=== PATIENT | female | born 1940 | race Caucasian/White ===

== ENCOUNTER → 2018-05-24 | Outpatient (CLI) | payer MEDICARE ==
[~2018-05-24] MED LIST: AMLO5 PO; ASCO500 PO; ASPI81CH PO; BISA5EC PO; CHOL10002 PO; CLON.1 PO; Cranberry300 MG PO; DOCU100 PO; FLUT.05NI; FURO40 PO; HYDCHL25 PO; Klor-Con 1010 MEQ PO; LISI20 PO; LORA10 PO; LOSA50 PO; LOVA20 PO; Lovastatin10 MG PO; METCAR750 PO; METF500 PO; METF500C PO; METO25 PO; METO50 PO; NITR100 PO; OMEP10ER PO; OMEP20ER PO; OXYACE5T PO; SUCR1 PO; TRAM50 PO; VITAMIN C500 MG PO
== END | disposition home or self-care (01) ==
LOC: LAB SHORT 11:03 → LAB EV 11:03
DX: N39.0 Urinary tract infection, site not specified (principal)
CPT/HCPCS: 87077; 87086; 87186

== ENCOUNTER → 2019-05-25 | Outpatient (CLI) | payer MEDICARE, OTHER | END | disposition home or self-care (01) | LOC: LAB SHORT 13:04 → LAB 13:04 | DX: R30.0 Dysuria (principal) | CPT/HCPCS: 87077; 87086; 87186 ==

== ENCOUNTER 2019-06-23 07:30 | Emergency (ER) | payer MEDICARE, OTHER ==
[~2019-06-23] VITALS: Ht 157.5 cm; Wt 90.7 kg
== END 2019-06-23 09:35 | disposition home or self-care (01) ==
LOC: ER 07:30
DX: S91.201A Unspecified open wound of right great toe with damage to nail, initial encounter (principal); E11.9 Type 2 diabetes mellitus without complications; I10 Essential (primary) hypertension; Z87.891 Personal history of nicotine dependence; Z88.8 Allergy status to other drugs, medicaments and biological substances; Z88.5 Allergy status to narcotic agent; Z88.1 Allergy status to other antibiotic agents; Z79.899 Other long term (current) drug therapy; Z79.84 Long term (current) use of oral hypoglycemic drugs; Z79.82 Long term (current) use of aspirin; W23.1XXA Caught, crushed, jammed, or pinched between stationary objects, initial encounter
CPT/HCPCS: 11730; 90471; 90714; 99282-25

== ENCOUNTER → 2019-07-29 | Outpatient (CLI) | payer MEDICARE, OTHER | END | disposition home or self-care (01) | LOC: LAB EV 16:05 → LAB SHORT 16:05 | DX: N39.0 Urinary tract infection, site not specified (principal) | CPT/HCPCS: 87086 ==

== ENCOUNTER 2020-08-15 06:20 | Day surgery (SDC) | payer MEDICARE, OTHER ==
[~2020-08-15] VITALS: Ht 157.5 cm; Wt 93.1 kg
[~2020-08-15 06:20] MED LIST changes: +Aspir 8181 MG PO
== END 2020-08-15 09:38 | disposition home or self-care (01) ==
LOC: ORSCSDS 06:20
PROVIDERS: Surgery
PROC: 0WUF0JZ Supplement Abdominal Wall with Synthetic Substitute, Open Approach (ICD-10-PCS; principal; 2020-08-15 07:30)
DX: K42.0 Umbilical hernia with obstruction, without gangrene (principal); G47.33 Obstructive sleep apnea (adult) (pediatric); Z87.891 Personal history of nicotine dependence; E78.5 Hyperlipidemia, unspecified; I10 Essential (primary) hypertension; E11.9 Type 2 diabetes mellitus without complications; Z85.528 Personal history of other malignant neoplasm of kidney; Z79.899 Other long term (current) drug therapy; Z79.82 Long term (current) use of aspirin; Z79.84 Long term (current) use of oral hypoglycemic drugs
CPT/HCPCS: 82947; C1781; J0690; J1100; J1885; J2250; J2405; J2704; J3010; J7120

== ENCOUNTER → 2021-04-15 | Outpatient (CLI) | payer MEDICARE, OTHER ==
[2021-04-17 13:10] LABS: M-SPIKE, % Not Observed % (Not Observed); PROTEIN,TOTAL,URINE 5.5 mg/dL (Not Estab.)
[2021-04-18 12:10] LABS: METANEPHRINE, UR 75 ug/L (Undefined)
[2021-04-20 17:08] LABS: DOPAMINE, URINE 70 ug/L (Undefined)
== END ==
LOC: LAB SHORT 07:31 → LAB 07:31
PROVIDERS: Internal Medicine; Internal Medicine Endocrinology, Diabetes & Metabolism
DX: D35.00 Benign neoplasm of unspecified adrenal gland (principal); E83.52 Hypercalcemia
CPT/HCPCS: 81050; 82384; 82530; 83835; 84156; 84166

== ENCOUNTER 2021-07-14 07:12 | Day surgery (SDC) | payer MEDICARE ==
[~2021-07-14] VITALS: Ht 159 cm; Wt 91.4 kg
--- NOTE | 2021-07-14 08:06 | NUR ---
History, Chart, Medications and Allergies reviewed before start of procedure.Ambulatory in Day Surgery Patient confirms NPO status and agrees with scheduled surgery.
--- NOTE | 2021-07-14 09:04 | NUR ---
07/14/21 0904 BAR MARIA History, Chart, Medications and Allergies reviewed before start of procedure. 3-LEAD EKG REVIEWED WITH PHYSICIAN PRIOR TO START OF PROCEDURE. O2 VIA N/C INTACT THROUGHOUT SEDATION/PROCEDURE. MONITOR INTACT WITH CONTINUOUS PULSE OXIMETRY AND INTERMITTENT BP. MAC WITH DR. NGUYEN.
--- NOTE | 2021-07-14 10:07 | NUR ---
Discharge instructions reviewed with patient. Patient verbalizes understanding. Copy given to patient to take home. PT BELCHING, DENIES PAIN. TOLERATED WATER AND JUICE WELL. Discharged via wheelchair to private car for ride home.
== END 2021-07-14 10:10 | disposition home or self-care (01) ==
LOC: ORSCMMR 07:12 → ORD 09:00 → ORSCMMR 09:00
PROVIDERS: Student in an Organized Health Care Education/Training Program
PROC: 0DB78ZX Excision of Stomach, Pylorus, Via Natural or Artificial Opening Endoscopic, Diagnostic (ICD-10-PCS; principal; 2021-07-14 09:00)
PROC: 0DB98ZX Excision of Duodenum, Via Natural or Artificial Opening Endoscopic, Diagnostic (ICD-10-PCS; principal; 2021-07-14 09:00)
DX: K21.9 Gastro-esophageal reflux disease without esophagitis (principal); R10.13 Epigastric pain; R14.0 Abdominal distension (gaseous); K29.80 Duodenitis without bleeding; I10 Essential (primary) hypertension; I25.10 Atherosclerotic heart disease of native coronary artery without angina pectoris; G47.33 Obstructive sleep apnea (adult) (pediatric); Z87.891 Personal history of nicotine dependence; E11.9 Type 2 diabetes mellitus without complications; E66.01 Morbid (severe) obesity due to excess calories; Z68.36 Body mass index [BMI] 36.0-36.9, adult; Z79.84 Long term (current) use of oral hypoglycemic drugs; Z79.899 Other long term (current) drug therapy
CPT/HCPCS: 82947; 88305; 88342; J2405; J2704; J7120

== ENCOUNTER → 2021-08-20 | Outpatient (CLI) | payer MEDICARE | END | disposition home or self-care (01) | LOC: LAB SHORT 17:43 | DX: R82.79 Other abnormal findings on microbiological examination of urine (principal) | CPT/HCPCS: 87077; 87086; 87186 ==

== ENCOUNTER → 2021-12-01 | Outpatient (CLI) | payer MEDICARE | END | disposition home or self-care (01) | LOC: LAB SHORT 15:28 → LAB 15:28 | DX: N39.0 Urinary tract infection, site not specified (principal) | CPT/HCPCS: 87086; 87147 ==

== ENCOUNTER → 2022-01-08 | Outpatient (CLI) | payer MEDICARE | LOC: LAB SHORT 09:00 → LAB 09:00 | PROVIDERS: Internal Medicine Endocrinology, Diabetes & Metabolism | DX: D35.00 Benign neoplasm of unspecified adrenal gland (principal) | CPT/HCPCS: 81050 ==

== ENCOUNTER → 2022-04-08 | Outpatient (CLI) | payer MEDICARE, OTHER ==
[2022-04-08 14:52] LABS: Creatinine Urine 45.3 mg/dL (27.00-270.00)
[2022-04-08 15:43] LABS: Calcium, Urine 10.6 mg/dL (< 17.5)
== END ==
LOC: LAB SHORT 07:00 → LAB 07:00
PROVIDERS: Internal Medicine Endocrinology, Diabetes & Metabolism
DX: E83.52 Hypercalcemia (principal)
CPT/HCPCS: 81050; 82340; 82570

== ENCOUNTER 2022-12-14 08:53 | Day surgery (SDC) | payer MEDICARE ==
[~2022-12-14] VITALS: Ht 157.5 cm; Wt 88.6 kg
[2022-12-14 11:16] VITALS: BP 121/71
== END 2022-12-14 11:15 | disposition home or self-care (01) ==
LOC: ORSCSDS 08:53
PROVIDERS: Student in an Organized Health Care Education/Training Program
PROC: 0DB78ZX Excision of Stomach, Pylorus, Via Natural or Artificial Opening Endoscopic, Diagnostic (ICD-10-PCS; principal; 2022-12-14 10:30)
DX: K31.A29 Gastric intestinal metaplasia with dysplasia, unspecified (principal); K29.70 Gastritis, unspecified, without bleeding; I10 Essential (primary) hypertension; I25.10 Atherosclerotic heart disease of native coronary artery without angina pectoris; G47.33 Obstructive sleep apnea (adult) (pediatric); Z87.891 Personal history of nicotine dependence; E11.9 Type 2 diabetes mellitus without complications; K76.0 Fatty (change of) liver, not elsewhere classified; E66.9 Obesity, unspecified; Z68.35 Body mass index [BMI] 35.0-35.9, adult; Z79.84 Long term (current) use of oral hypoglycemic drugs; Z79.899 Other long term (current) drug therapy; Z79.82 Long term (current) use of aspirin
CPT/HCPCS: 82947; 88305; 88341; 88342; J2704; J7120

== ENCOUNTER → 2023-04-29 | Outpatient (CLI) | payer MEDICARE, OTHER | LOC: LAB SHORT 08:51 → LAB 08:51 | DX: N39.0 Urinary tract infection, site not specified (principal) | CPT/HCPCS: 87077; 87086; 87186 ==

== ENCOUNTER 2023-05-22 10:48 | Emergency (ER) | payer MEDICARE ==
[~2023-05-22] VITALS: Ht 157.5 cm; Wt 86.2 kg
[2023-05-22 11:01] VITALS: BP 179/86
[2023-05-22 11:24] LABS: Source, Urine Clean Catch
[2023-05-22 11:28] LABS: BASOPHILS ABSOLUTE AUTO 0.05 K/mm3 (0.00-0.23); BASOPHILS PERCENT AUTO 1 % (0-2); EOSINOPHILS ABSOLUTE AUTO 0.21 K/mm3 (0.00-0.68); EOSINOPHILS PERCENT AUTO 3 % (0-6); Hemoglobin 12.6 g/dL (11.5-16.0); IMMATURE GRAN ABSOLUTE AUTO 0.01 K/mm3 (0.00-0.10); IMMATURE GRAN PERCENT AUTO 0 % (0-1); LYMPHOCYTES ABSOLUTE AUTO 1.16 K/mm3 (0.84-5.20); LYMPHOCYTES PERCENT AUTO 17 % (21-46); MONOCYTES ABSOLUTE AUTO 0.59 K/mm3 (0.16-1.47); MONOCYTES PERCENT AUTO 9 % (4-13); Mean Corpuscular HGB 31.3 pg (26.0-34.0); Mean Corpuscular HGB Conc 34.1 g/dL (31.5-36.5); Mean Corpuscular Volume 92 fL (80-100); Mean Platelet Volume 10.1 fL (9.1-12.4); NEUTROPHILS ABSOLUTE AUTO 4.91 K/mm3 (1.96-9.15); NEUTROPHILS PERCENT AUTO 71 % (41-73); Platelet Count 291 K/mm3 (150-400); RDW Coefficient Variation 14.6 % (11.7-14.2); RDW Standard Deviation 49.1 fL (35.1-46.3); Red Blood Cell Count 4.02 M/mm3 (3.80-5.20); White Blood Cell Count 6.93 K/mm3 (4.00-11.30)
[2023-05-22 11:42] LABS: Appearance, Urine Cloudy (Clear); Bilirubin, Urine Neg (Neg); Blood, Urine 4+ (Neg); Color, Urine Yellow (P-Yellow); Glucose Qualitative, Urine Neg (Neg); Ketones, Urine Neg (Neg); Leukocyte Esterase, Urine 3+ (Neg); Nitrite, Urine Neg (Neg); Protein, Urine 2+ (Neg); Urobilinogen, Urine NORM (Normal)
[2023-05-22 11:43] LABS: Albumin, Blood 3.7 g/dL (3.4-5.0); Albumin/Globulin Ratio 1.2 (0.8-1.8); Bilirubin, Total 0.3 mg/dL (0.1-1.0); Bun/Creatinine Ratio 18.1 (12.0-20.0); Creatinine, Blood 0.77 mg/dL (0.40-1.00); Globulin, Blood 3.2 g/dL (2.2-4.0); Potassium, Blood 4.2 mmol/L (3.5-5.5); Total Protein, Blood 6.9 g/dL (6.4-8.2)
[2023-05-22 11:56] LABS: White Blood Cells, Urine TNTC /hpf (0-5)
[2023-05-22 11:57] LABS: Bacteria Few /hpf; Squamous Epithelial Cells Rare /hpf (Few)
[2023-05-22] MEDS ORDERED: CEFP200 PO (12:16)
== END 2023-05-22 12:25 | disposition home or self-care (01) ==
LOC: ER 10:48
PROVIDERS: Student in an Organized Health Care Education/Training Program
DX: N39.0 Urinary tract infection, site not specified (principal); Z87.891 Personal history of nicotine dependence; E11.9 Type 2 diabetes mellitus without complications; I10 Essential (primary) hypertension; Z88.0 Allergy status to penicillin; Z88.5 Allergy status to narcotic agent; Z88.8 Allergy status to other drugs, medicaments and biological substances; Z79.84 Long term (current) use of oral hypoglycemic drugs; Z79.82 Long term (current) use of aspirin; Z79.899 Other long term (current) drug therapy
CPT/HCPCS: 80053; 81001; 85025; 87077; 87086; 87186; 99283

== ENCOUNTER → 2023-07-21 | Outpatient (CLI) | payer MEDICARE ==
[~2023-07-21] MED LIST changes: +CEFP200 PO
== END | disposition home or self-care (01) ==
LOC: LAB 17:32 → LAB SHORT 17:32
DX: N30.00 Acute cystitis without hematuria (principal)
CPT/HCPCS: 87077; 87086; 87186

== ENCOUNTER 2023-12-11 08:18 | Emergency (ER) | payer MEDICARE, OTHER ==
[~2023-12-11] VITALS: Ht 157.5 cm; Wt 81.7 kg
[~2023-12-11 08:18] MED LIST changes: +Flonase 0.05% N16 GM; +SERT25 PO; +Tessalon Perle100 MG PO
[2023-12-11] MEDS ORDERED: Ibuprofen 400 MG Tab PO ONE (08:50)
[2023-12-11 09:29] VITALS: BP 155/89
== END 2023-12-11 09:59 | disposition home or self-care (01) ==
LOC: ER 08:18
DX: M25.552 Pain in left hip (principal); G89.29 Other chronic pain; Z88.8 Allergy status to other drugs, medicaments and biological substances; Z88.0 Allergy status to penicillin; Z88.5 Allergy status to narcotic agent; Z88.1 Allergy status to other antibiotic agents; Z79.899 Other long term (current) drug therapy; Z79.84 Long term (current) use of oral hypoglycemic drugs; Z79.82 Long term (current) use of aspirin; E11.9 Type 2 diabetes mellitus without complications; I10 Essential (primary) hypertension; Z87.891 Personal history of nicotine dependence
CPT/HCPCS: 99283; A9270

== ENCOUNTER → 2024-03-06 | Outpatient (CLI) | payer MEDICARE | END | disposition home or self-care (01) | LOC: LAB SHORT 08:53 → LAB 08:53 | DX: N39.0 Urinary tract infection, site not specified (principal) | CPT/HCPCS: 87077; 87086; 87186 ==

== ENCOUNTER 2024-04-08 03:43 | Emergency (ER) | payer MEDICARE ==
[~2024-04-08] VITALS: Ht 157.5 cm; Wt 81.7 kg
[2024-04-08 03:52] VITALS: BP 167/90
[2024-04-08 04:14] LABS: Source, Urine Clean Catch
[2024-04-08 04:18] LABS: Appearance, Urine Hazy (Clear); Bilirubin, Urine Neg (Neg); Blood, Urine 5+ (Neg); Color, Urine Yellow (P-Yellow); Glucose Qualitative, Urine Neg (Neg); Ketones, Urine Neg (Neg); Leukocyte Esterase, Urine 3+ (Neg); Nitrite, Urine Neg (Neg); Protein, Urine 3+ (Neg); Urobilinogen, Urine NORM (Normal)
[2024-04-08 04:25] LABS: Bacteria Many /hpf; Squamous Epithelial Cells Not Seen /hpf (Few); White Blood Cells, Urine TNTC /hpf (0-5)
[2024-04-08 04:47] LABS: BASOPHILS ABSOLUTE AUTO 0.05 K/mm3 (0.00-0.23); BASOPHILS PERCENT AUTO 1 % (0-2); EOSINOPHILS ABSOLUTE AUTO 0.22 K/mm3 (0.00-0.68); EOSINOPHILS PERCENT AUTO 3 % (0-6); Hematocrit 37.3 % (33.0-51.0); Hemoglobin 12.4 g/dL (11.5-16.0); IMMATURE GRAN ABSOLUTE AUTO 0.04 K/mm3 (0.00-0.10); IMMATURE GRAN PERCENT AUTO 1 % (0-1); LYMPHOCYTES ABSOLUTE AUTO 1.37 K/mm3 (0.84-5.20); LYMPHOCYTES PERCENT AUTO 17 % (21-46); MONOCYTES ABSOLUTE AUTO 0.65 K/mm3 (0.16-1.47); MONOCYTES PERCENT AUTO 8 % (4-13); Mean Corpuscular HGB 29.7 pg (26.0-34.0); Mean Corpuscular HGB Conc 33.2 g/dL (31.5-36.5); Mean Corpuscular Volume 89 fL (80-100); Mean Platelet Volume 9.3 fL (9.1-12.4); NEUTROPHILS ABSOLUTE AUTO 5.56 K/mm3 (1.96-9.15); NEUTROPHILS PERCENT AUTO 71 % (41-73); Platelet Count 263 K/mm3 (150-400); RDW Coefficient Variation 14.9 % (11.7-14.2); RDW Standard Deviation 49.1 fL (35.1-46.3); Red Blood Cell Count 4.18 M/mm3 (3.80-5.20); White Blood Cell Count 7.89 K/mm3 (4.00-11.30)
[2024-04-08 05:01] LABS: Albumin, Blood 3.6 g/dL (3.4-5.0); Albumin/Globulin Ratio 1.1 (0.8-1.8); Bilirubin, Total 0.3 mg/dL (0.1-1.0); Bun/Creatinine Ratio 21.3 (12.0-20.0); Calcium, Blood 10.1 mg/dL (8.5-10.1); Creatinine, Blood 0.75 mg/dL (0.40-1.00); Globulin, Blood 3.2 g/dL (2.2-4.0); Total Protein, Blood 6.8 g/dL (6.4-8.2)
[2024-04-08] MEDS ORDERED: CefTRIAXone Sodium 1,000 MG in NS 50 ML IV ONE (05:45)
[2024-04-08] MEDS ORDERED: CEFD300 PO (05:50)
== END 2024-04-08 06:04 | disposition home or self-care (01) ==
LOC: ER 03:43
PROVIDERS: Student in an Organized Health Care Education/Training Program
DX: N39.0 Urinary tract infection, site not specified (principal); E11.9 Type 2 diabetes mellitus without complications; I10 Essential (primary) hypertension; Z79.51 Long term (current) use of inhaled steroids; Z79.82 Long term (current) use of aspirin; Z79.899 Other long term (current) drug therapy; Z79.84 Long term (current) use of oral hypoglycemic drugs; Z88.0 Allergy status to penicillin; Z88.1 Allergy status to other antibiotic agents; Z88.5 Allergy status to narcotic agent; Z88.8 Allergy status to other drugs, medicaments and biological substances
CPT/HCPCS: 80053; 81001; 85025; J0696

== ENCOUNTER → 2024-10-23 | Outpatient (CLI) | payer MEDICARE ==
[~2024-10-23] MED LIST changes: +CEFD300 PO
[2024-10-23 14:05] LABS: Source, Urine Clean Catch
[2024-10-23 14:47] LABS: Appearance, Urine Hazy (Clear); Bilirubin, Urine Neg (Neg); Blood, Urine Neg (Neg); Color, Urine Yellow (P-Yellow); Glucose Qualitative, Urine Neg (Neg); Ketones, Urine Neg (Neg); Leukocyte Esterase, Urine 3+ (Neg); Nitrite, Urine Pos (Neg); Protein, Urine Neg (Neg); Specific Gravity, Urine 1.015 (1.003-1.022); Urobilinogen, Urine NORM (Normal)
[2024-10-23 15:05] LABS: Red Blood Cells, Urine 0-2 /hpf (0-2); Squamous Epithelial Cells Few /hpf (Few)
[2024-10-23 15:06] LABS: Bacteria Many /hpf
== END ==
LOC: LAB 14:01 → LAB SHORT 14:01
PROVIDERS: Internal Medicine
DX: N39.0 Urinary tract infection, site not specified (principal)
CPT/HCPCS: 81001; 87077; 87086; 87186

== ENCOUNTER 2024-11-28 14:14 | Observation (INO) | payer MEDICARE ==
[~2024-11-28] VITALS: Ht 157.5 cm; Wt 81.7 kg
[2024-11-28 14:56] LABS: BASOPHILS ABSOLUTE AUTO 0.04 K/mm3 (0.00-0.23); BASOPHILS PERCENT AUTO 1 % (0-2); EOSINOPHILS ABSOLUTE AUTO 0.16 K/mm3 (0.00-0.68); EOSINOPHILS PERCENT AUTO 3 % (0-6); Hematocrit 35.6 % (33.0-51.0); Hemoglobin 12.9 g/dL (11.5-16.0); IMMATURE GRAN ABSOLUTE AUTO 0.02 K/mm3 (0.00-0.10); IMMATURE GRAN PERCENT AUTO 0 % (0-1); LYMPHOCYTES ABSOLUTE AUTO 1.19 K/mm3 (0.84-5.20); LYMPHOCYTES PERCENT AUTO 21 % (21-46); MONOCYTES ABSOLUTE AUTO 0.45 K/mm3 (0.16-1.47); MONOCYTES PERCENT AUTO 8 % (4-13); Mean Corpuscular HGB 32.7 pg (26.0-34.0); Mean Corpuscular HGB Conc 36.2 g/dL (31.5-36.5); Mean Corpuscular Volume 90 fL (80-100); Mean Platelet Volume 9.9 fL (9.1-12.4); NEUTROPHILS ABSOLUTE AUTO 3.77 K/mm3 (1.96-9.15); NEUTROPHILS PERCENT AUTO 67 % (41-73); Platelet Count 327 K/mm3 (150-400); RDW Coefficient Variation 14.5 % (11.7-14.2); RDW Standard Deviation 46.9 fL (35.1-46.3); Red Blood Cell Count 3.94 M/mm3 (3.80-5.20); White Blood Cell Count 5.63 K/mm3 (4.00-11.30)
[2024-11-28 15:23] LABS: Albumin, Blood 3.7 g/dL (3.4-5.0); Albumin/Globulin Ratio 1.1 (0.8-1.8); Bilirubin, Total 0.2 mg/dL (0.1-1.0); Bun/Creatinine Ratio 22.6 (12.0-20.0); Calcium, Blood 9.9 mg/dL (8.5-10.1); Creatinine, Blood 0.8 mg/dL (0.40-1.00); Globulin, Blood 3.3 g/dL (2.2-4.0); Potassium, Blood 4.2 mmol/L (3.5-5.5)
[2024-11-28] MEDS ORDERED: Ondansetron HCl 2 MG / ML 2ML Vial IV PRN (18:35)
[2024-11-28] MEDS ORDERED: GABA100 PO ×2 (20:05)
[2024-11-28] MEDS ORDERED: SERT50 PO (20:06)
[2024-11-28] MEDS ORDERED: Bentyl10 MG PO (20:07)
[2024-11-28] MEDS ORDERED: Metoprolol Tartrate 50 MG Tab PO SCH (21:00)
[2024-11-28 21:25] VITALS: BP 151/94
[2024-11-28] MEDS ORDERED: Acetaminophen 500 MG Tab PO PRN (22:20)
[2024-11-29 00:40] VITALS: BP 156/76
[2024-11-29 03:32] VITALS: BP 162/85
[2024-11-29] MEDS ORDERED: Omeprazole 20 MG CapCR PO SCH (06:00)
[2024-11-29 07:14] VITALS: BP 152/70
[2024-11-29] MEDS ORDERED: Insulin Human Lispro 100 Units/ML 3ML Syringe SC SCH (07:30)
[2024-11-29] MEDS ORDERED: Enoxaparin 40 MG/0.4 ML SYR SC SCH (09:00)
[2024-11-29] MEDS ORDERED: Losartan Potassium 50 MG Tab PO SCH (09:00)
[2024-11-29] MEDS ORDERED: Aspirin 81 MG Chew PO SCH (09:00)
[2024-11-29] MEDS ORDERED: Atorvastatin 10 MG Tab PO SCH (09:00)
[2024-11-29 11:29] VITALS: BP 146/82
[2024-11-29 16:33] VITALS: BP 149/75
--- NOTE | 2024-11-29 17:54 | NUR ---
SHIFT SUMMARY MS SLATER HAS DENIED ANY CHEST PAIN OR SHORTNESS OF BREATH THIS SHIFT. ON TELE SR 1ST DEGREE AVB, NO CALLS FROM MEASUREMENT SUPERINTENDENT. FIRST PART OF STRESS TEST DONE, PLAN FOR SECOND PART TOMORROW AROUND 1030AM. UP WITH STAND-BY ASSISTANCE IN THE ROOM/BATHROOM. SHE REPORTS A FALL AT HOME 4-6 WEEKS AGO. BED AND CHAIR ALARMS USED AND PT EDUCATED ON FALL PRECAUTIONS. IN CHAIR NOW, CALL LIGHT IN REACH.
[2024-11-29 20:37] VITALS: BP 147/81
[2024-11-30 01:15] VITALS: BP 104/58
--- NOTE | 2024-11-30 04:02 | NUR ---
SHIFT SUMMARY NO ACUTE EVENTS DURING THIS SHIFT. PT NANCY CHEST PAIN/SOB, DENIES PAIN. TELE: SR @65. NPO AFTER MIDNIGHT, PLAN IS TO HAVE 2ND PART OF THE STRESS TEST TODAY @1030. PT IS A/O X4, ABLE TO MAKE HER NEEDS KNOWN AND COOPERATIVE WITH CARE. SBA TO THE RESTROOM. PT REPORTS LIVES INDEPENDENTLY. @ GRAND DAUGHTER BY THE BEDSIDE. BED AT THE LOWEST POSITION, CALL LIGHT W/I REACH. BED AND CHAIR ALARMS FOR SAFETY.
[2024-11-30 05:17] VITALS: BP 152/88
[2024-11-30 07:23] VITALS: BP 154/88
[2024-11-30] MEDS ORDERED: Regadenoson 0.4 MG/5 ML SYRINGE ONE (09:29)
[2024-11-30] MEDS ORDERED: Caffeine Citrated 60 MG/3 ML Vial ONE (09:29)
[2024-11-30 12:01] VITALS: BP 144/83
--- NOTE | 2024-11-30 12:28 | NUR ---
Responding to a request from leadership rounding, this personal lines account manager visited the Pt. Pt. is awake and is sitting in a chair when she welcomes my visit. Pt. is very pleasant. Facilitated a lengthy life review where the Pt. shared about how she recently lost her spouse in 2022. Listen with empathy and pastoral support. Pt. displays evidence of great awareness and is fully engaged with our conversation. Pt. verbalized the great meaning of her queenie. Prayed with the Pt. Pt. verbalized gratitude for the spiritual care visit and welcomed this personal lines account manager to return.
--- NOTE | 2024-11-30 18:27 | NUR ---
DISCHARGE NOTE: WENT OVER DISCHARGE WITH THE PATIENT, IV AND TELE REMOVED. PATIENT GOT DRESSED AND GATHERED BELONGINGS. PATIENT WAS WHEELED DOWN BY FAMILY, NO SIGNS OR SYMPTOMS OF DISTRESS WITH DISCHARGE.
== END 2024-11-30 17:55 | disposition home or self-care (01) ==
LOC: ER 14:14 → MEDS 14:15
PROVIDERS: Student in an Organized Health Care Education/Training Program; ADMIT Student in an Organized Health Care Education/Training Program
DX: R07.89 Other chest pain (principal); K21.9 Gastro-esophageal reflux disease without esophagitis; I10 Essential (primary) hypertension; R53.1 Weakness; E11.9 Type 2 diabetes mellitus without complications; E78.5 Hyperlipidemia, unspecified; G89.29 Other chronic pain; M54.9 Dorsalgia, unspecified; Z91.81 History of falling; Z79.82 Long term (current) use of aspirin; Z79.84 Long term (current) use of oral hypoglycemic drugs; Z79.899 Other long term (current) drug therapy; Z88.0 Allergy status to penicillin; Z88.1 Allergy status to other antibiotic agents; Z88.5 Allergy status to narcotic agent; Z88.8 Allergy status to other drugs, medicaments and biological substances
CPT/HCPCS: 70450; 71046; 78452; 80053; 82947; 84484; 85025; 93005; 93010; 93017; 96372; 99285-25; A9270; A9500; G0378; J0706; J1650; J2785

== ENCOUNTER → 2025-07-28 | Outpatient (CLI) | payer MEDICARE ==
[~2025-07-28] MED LIST changes: +Bentyl10 MG PO; +GABA100 PO; +SERT50 PO
[2025-07-28 16:08] LABS: BASOPHILS ABSOLUTE AUTO 0.06 K/mm3 (0.00-0.23); BASOPHILS PERCENT AUTO 1 % (0-2); EOSINOPHILS ABSOLUTE AUTO 0.17 K/mm3 (0.00-0.68); EOSINOPHILS PERCENT AUTO 3 % (0-6); Hematocrit 37.9 % (33.0-51.0); Hemoglobin 12.5 g/dL (11.5-16.0); IMMATURE GRAN ABSOLUTE AUTO 0.02 K/mm3 (0.00-0.10); IMMATURE GRAN PERCENT AUTO 0 % (0-1); LYMPHOCYTES ABSOLUTE AUTO 1.36 K/mm3 (0.84-5.20); LYMPHOCYTES PERCENT AUTO 23 % (21-46); MONOCYTES ABSOLUTE AUTO 0.50 K/mm3 (0.16-1.47); MONOCYTES PERCENT AUTO 8 % (4-13); Mean Corpuscular HGB Conc 33.0 g/dL (31.5-36.5); Mean Corpuscular Volume 92 fL (80-100); NEUTROPHILS ABSOLUTE AUTO 3.83 K/mm3 (1.96-9.15); NEUTROPHILS PERCENT AUTO 65 % (41-73); NRBC ABSOLUTE 0.00 K/mm3 (0.00-0.02); NRBC Auto 0.0 /100 WBC (0.0-0.2); Platelet Count 304 K/mm3 (150-400); RDW Coefficient Variation 14.4 % (11.7-14.2); RDW Standard Deviation 48.1 fL (35.1-46.3)
[2025-07-28 16:49] LABS: Alanine Aminotransfer (ALT/SGP 18.0 U/L (12-78); Albumin, Blood 3.9 g/dL (3.4-5.0); Albumin/Globulin Ratio 1.1 (0.8-1.8); Anion Gap 9.0 mmol/L (3-11); Aspartate Aminotrans (AST/SGOT 14.0 U/L (12-37); Bilirubin, Total 0.2 mg/dL (0.1-1.0); Blood Urea Nitrogen 15.0 mg/dL (8-24); CO2, Blood 26.0 mmol/L (21-32); Calcium, Blood 10.6 mg/dL (8.5-10.1); Chloride, Blood 106.0 mmol/L (98-108); Creatinine, Blood 0.74 mg/dL (0.40-1.00); Globulin, Blood 3.4 g/dL (2.2-4.0); Glucose, Blood 118.0 mg/dL (70-99); Potassium, Blood 3.8 mmol/L (3.5-5.5); Sodium, Blood 137.0 mmol/L (136-145); Total Protein, Blood 7.3 g/dL (6.4-8.2)
== END ==
LOC: LAB SHORT 16:03 → LAB 16:03
PROVIDERS: Physician Assistant Medical
DX: R10.84 Generalized abdominal pain (principal)
CPT/HCPCS: 80053; 85025

== ENCOUNTER → 2025-07-29 | Outpatient (CLI) | payer MEDICARE ==
[2025-07-29 15:29] LABS: Campylobacter Sp Not Detected (NOT DETECT); E. Coli O157 Not Detected (NOT DETECT); Enteroaggregative E. coli-EAEC Not Detected (NOT DETECT); Enteropathogenic E. coli-EPEC Not Detected (NOT DETECT); Enterotoxigenic E. coli-ETEC Not Detected (NOT DETECT); Salmonella Sp Not Detected (NOT DETECT); Shiga Toxin-prod E. coli-STEC Not Detected (NOT DETECT); Shigella/Enteroin E. coli-EIEC Not Detected (NOT DETECT); Vibrio Sp Not Detected (NOT DETECT)
== END ==
LOC: LAB 08:35 → LAB SHORT 08:35
PROVIDERS: Physician Assistant Medical
DX: R19.7 Diarrhea, unspecified (principal)
CPT/HCPCS: 87507